=== PATIENT | female | born 1980 | race Caucasian/White ===

== ENCOUNTER 2020-02-22 09:33 | Emergency (ER) | payer OTHER, SELFPAY ==
--- NOTE | ~2020-02-22 | XR_ITS ---
XR humerus RT 02/22/2020 10:16 Indication: Right arm pain after fall Procedure: 2 views right humerus Comparison: No prior studies for comparison. Findings: There is a nondisplaced radial head fracture. No other fracture. No significant soft tissue abnormality. No radiopaque foreign bodies. Impression: 1: Nondisplaced radial head fracture. Reviewed, dictated and finalized at location A. Impression: 1: Nondisplaced radial head fracture.
--- NOTE | ~2020-02-22 | XR_ITS ---
XR forearm RT 2V 02/22/2020 10:16 Indication: Right arm pain after fall Procedure: 2 views right forearm Comparison: No prior studies for comparison. Findings: There is a radial head fracture. There is a moderate elbow effusion with displacement of th e ventral fat pad. No other fracture is identified. Impression: 1: Radial head fracture. Reviewed, dictated and finalized at location A. Impression: 1: Radial head fracture.
--- NOTE | ~2020-02-22 | XR_ITS ---
XR knee LT 3V 02/22/2020 10:16 INDICATION: Left knee pain after fall PROCEDURE: 3 views left knee COMPARISON: No prior studies for comparison. FINDINGS: Fracture, dislocation or subluxation is not identified. No significant joint effusion. The soft tissues appear within normal limits. No foreign bodies are identified. IMPRESSION: 1: NO ACUTE BONE OR JOINT ABNORMALITY IDENTIFIED. Reviewed, dictated and finalized at location A.
--- NOTE | 2020-02-22 09:43 | ED.GENADULT ---
HPI - General Adult General Chief complaint: Extremity Injury, Upper Stated complaint: rt arm injury/lt knee/rt ankle Time Seen by Provider: 02/22/20 09:55 Source: patient Mode of arrival: ambulatory Limitations: no limitations History of Present Illness HPI narrative: 40-year-old female patient presents to the [facility] with complaints of right arm pain, left knee pain and right ankle pain after a fall today. Patient states she stepped on a corner and rolled her right ankle, fell onto her left knee as well as landed on her right arm. Patient states her ankle really is not giving her that much pain. Patient states that her left knee feels like it is most likely bruised but the most pain that she has is her right arm. Denies hitting her head or loss consciousness. Denies taking any Tylenol or ibuprofen prior to arrival today. Patient does have an ice pack to the right arm at this time. Related Data Home Medications Medication Instructions Recorded Confirmed bupropion HCl PO 02/22/20 lamotrigine 02/22/20 levothyroxine 02/22/20 Allergies Allergy/AdvReac Type Severity Reaction Status Date / Time No Known Allergies Allergy Verified 02/22/20 09:51 Review of Systems Review of Systems: Narrative: CONSTITUTIONAL: Denies fever, chills, or sweats. EYES: Denies visual changes, redness, or discharge. ENT: Denies rhinorrhea, congestion, sore throat, or otalgia. CARDIOVASCULAR: Denies chest pain, palpitations, or edema. RESPIRATORY: Denies cough or dyspnea. GASTROINTESTINAL: Denies abdominal pain, nausea, vomiting, or diarrhea. GENITOURINARY: Denies dysuria or hematuria. SKIN: Denies rash or itching. MUSCULOSKELETAL: Denies back pain, joint pain, or myalgia. Positive right forearm and elbow pain, left knee pain, right ankle pain. NEUROLOGIC: Denies headache, numbness, or weakness. PSYCHIATRIC: Denies anxiety or depression. PMFSH Comments At the time of my signature I agree with nursing past medical history, surgical, social, and family history. There is no relevant family history pertinent to the presenting complaint. Exam Narrative: Exam Narrative: GENERAL: Well-appearing, well-nourished, and in no acute distress. HEAD: Normocephalic, atraumatic. EYES: PERRLA and EOMI. ENT: Nares clear, no rhinorrhea or epistaxis. Mucous membranes moist. NECK: Supple. No lymphadenopathy CHEST: Clear to auscultation. No respiratory distress. HEART: Regular rate and rhythm. No murmur heard. Normal peripheral pulses. ABDOMEN: Soft, nontender, nondistended, normal active bowel sounds. EXTREMITIES: The R elbow is without obvious asymmetry or deformity when compared to the L elbow. No obvious surface trauma, ecchymosis or soft tissue swelling. no bony tenderness to palpation of the lateral or medial epicondyle, olecranon, patient did have bony tenderness over the radial head. No epicondylar or axillary lymphadenopathy. No pain with flexion, pain with extension, supination, pronation. Normal muscle strength. Intact motor and sensation of ulnar, median, and radial nerves. Patient is able to bear weight and ambulate without pain. Patient does have abrasion noted to the patella of the left knee. No overlying erythema or warmth. The L knee is without obvious asymmetry or deformity when compared to the R knee. Patient is able to do deep knee bend with symmetry, fully extend knee, internal and external rotation. tendernss to palpation of the patella, no effusion or ballottement. No tenderness over the infrapatellar tendon. No tenderness over the medial or lateral joint lone ot the medial or lateral tibial plateaus. no tenderness over the proximal fibular head. no tenderness, fullness, or mass of the popliteal fossa. No quadriceps tenderness. No laxity of the ACL, PCL, MCL, or LCL. No collateral ligament laxity to valgus or vargus stress. Negative herbert/drawer sign. Negative Peri. Negative Apley compression and/or distraction. Distal motor and neurovascular
[2020-02-22 09:58] VITALS: BP 139/96; PULSE 96; RESP 16; TEMP 37; O2SAT 99
== END 2020-02-22 10:54 | disposition home or self-care (01) ==
PROVIDERS: Emergency Provider Nurse Practitioner Family; PCP Pediatrics
DX: S52.124A Nondisplaced fracture of head of right radius, initial encounter for closed fracture (principal); W19.XXXA Unspecified fall, initial encounter; M19.90 Unspecified osteoarthritis, unspecified site; E03.9 Hypothyroidism, unspecified; F31.9 Bipolar disorder, unspecified
CPT/HCPCS: 29105; 73060; 73090; 73562; 99214; A4565; G0463